=== PATIENT | female | born 1970 | race Caucasian/White ===

== ENCOUNTER → 2022-08-12 13:15 | Outpatient (CLI) | payer OTHER, BC, SELFPAY ==
--- NOTE | ~2022-08-12 | MM_ITS ---
EXAMINATION: MM screening [facility] BI w jay HISTORY: Screening mammogram TECHNIQUE: Craniocaudal and mediolateral oblique 3-D tomosynthesis images were obtained and synthetic 2-D images were generated. CAD analysis was submitted and interpreted. COMPARISON: 04/29/2016, 01/23/2014 BREAST PARENCHYMAL COMPOSITION: There are scattered areas of fibroglandular density. FINDINGS: No suspicious mass, calcification, or architectural distortion are identified in either ary ast to suggest malignancy. There has been no suspicious interval change. IMPRESSION: 1. No mammographic evidence of malignancy. 2. Recommend routine screening mammography in one year. BI-RADS Category 1: Negative Reviewed, dictated and finalized at location A.
== END ==
PROVIDERS: PCP Clinical Nurse Specialist; Visit Provider Clinical Nurse Specialist
DX: Z12.31 Encounter for screening mammogram for malignant neoplasm of breast (principal)
CPT/HCPCS: 77063; 77067

== ENCOUNTER → 2022-10-29 10:53 | Outpatient (CLI) | payer OTHER, BC, SELFPAY ==
--- NOTE | ~2022-10-29 | DEXA_ITS ---
Bone Density Report Name: JANAY LOPEZ Age: 52 Sex: Female Ethnicity: White Date of : 1970 Indication: postmenopausal; screening for osteoporosis; height loss; Referring Provider: Vanesa Hameed Study: Bone densitometry was performed. Exam Date: October 29, 2022 Accession number: [id number] Bone Density: Region BMD T-score Z-score Classification AP Spine (L1-L4) 0.892 -1.4 -0.4 Osteopenia Femoral Neck (Left) 0.681 -1.5 -0.5 Osteopenia Total Hip (Left) 0.853 -0.7 -0.1 Normal Femoral Neck (Right) 0.681 -1.5 -0.5 Osteopenia Total Hip (Right) 0.820 -1.0 -0.4 Normal Total Hip Mean 0.837 -0.9 -0.3 Normal World Health Organization criteria for BMD impression classify patients as: Normal (T-score at or above -1.0), Osteopenia (T-score between -1.0 and -2.5), or Osteoporosis (T-score at or below -2.5). 10-year Fracture Risk(1): Major Osteoporotic Fracture 6.1% Hip Fracture 0.5% Reported Risk Factors: [place] (), Neck BMD=0.681, BMI=29.9 (1) FRAX(R) Version 3.08. Fracture probability calculated for an untreated patient. Fracture probability may be lower if the patient has received treatment. Clinical Information Provided by Patient: Has used the following medications: Vitamin D, MTV Patient maximum height was 71 Menopause Age: 49 Does not regularly consume dairy products Drinks caffeinated beverages Onset of menses at age 12 Number of children 6 Impression: The patient has low bone mass, based on the Left Femoral Neck T-score. The patient has an estimated ten-year risk of hip fracture of 0.5% and an estimated ten-year risk of major fracture of 6.1%, based on the WHO FRAX algorithm. Discussion: BONE DENSITY IS LOW AT ONE OR MORE SKELETAL SITES. This patient's lowest T-score is low at one or more skeletal sites. It meets the World Health Organization's (WHO) criteria for ?low bone mass? (T-score between -1.0 and -2.5). The patient's 10-year risk of fracture as calculated by FRAX is less than the threshold where pharmacological therapy is recommended by the National Osteoporosis Foundation (NOF). However, all treatment decisions require clinical judgment and consideration of individual patient factors, including patient preferences, comorbidities, previous drug use, risk factors not captured in the FRAX model (e.g., frailty, falls, vitamin D deficiency, increased bone turnover, interval significant decline in bone density) and possible under or overestimation of fracture risk by FRAX. The patient should follow a healthful lifestyle (good nutrition with adequate calcium and vitamin D, and appropriate weight-bearing exercise). Follow-Up: Consider repeating this study in 2 to 3 years to reassess this patient's status, or sooner if there is some new clinical indication. Reported by: LOLIS
== END ==
PROVIDERS: PCP Clinical Nurse Specialist; Visit Provider Clinical Nurse Specialist
DX: Z78.0 Asymptomatic menopausal state (principal); M85.89 Other specified disorders of bone density and structure, multiple sites
CPT/HCPCS: 77080

== ENCOUNTER 2023-03-22 00:33 | Day surgery (SDC) | payer OTHER, BC, SELFPAY ==
[2023-03-07 09:30] VITALS: BMI 27.2
--- NOTE | 2023-03-18 10:28 | SUR.PREOP ---
Patient called regarding upcoming procedure. Reviewed preop instructions, appointment times, and procedure prep.
[2023-03-22 06:29] VITALS: BMI 29.2
[2023-03-22 06:32] VITALS: BP 133/81; PULSE 75; RESP 20; TEMP 37; O2SAT 99
[2023-03-22] MEDS: LACTATED RINGERS 1,000 ML 150 ML IV CONT (06:38)
--- NOTE | 2023-03-22 07:04 | WPDANESEPPF ---
Anes - Initial Pre Proc Eval Procedure: Operation Date: 03/22/23 07:30 Proposed Procedures p Screening Colonoscopy - Joseph Gay MD Date/Time: 03/22/23 07:04 Surgeon: Joseph Gay MD Pre Op Diagnosis: neoplasm screening Patient Data Age: 52 Gender: F Height: 1.8 m Weight: 95 kg Last Vital Signs Temp 37.0 C 03/22/23 06:32 Pulse 75 03/22/23 06:32 Resp 20 03/22/23 06:32 BP 133/81 03/22/23 06:32 Pulse Ox 99 03/22/23 06:32 O2 Del Method Room Air 03/22/23 06:32 Allergies Allergy/AdvReac Type Severity Reaction Status Date / Time merbromin Allergy Rash Verified 03/22/23 06:28 [From Mercurochrome] Home Medications Medication Instructions Recorded Confirmed Type diphenhydramine HCl 25 mg capsule 25 mg PO QHS PRN Insomnia 08/03/22 03/07/23 History (Benadryl) vitamin B complex-folic acid 0.4 1 tablet PO DAILY 08/03/22 03/07/23 History mg tablet (Super B Maxi Complex) calcium carbonate 500 mg calcium 500 mg PO DAILY 12/09/22 03/07/23 History (1,250 mg) chewable tablet (Calcium 500) omega-3 900 mg-dha 360 mg-epa 455 1 cap PO DAILY 12/09/22 03/07/23 History mg-fish oil 1,000 mg capsule (Fish Oil) multivit with minerals-iron 18 1 tablet PO DAILY 03/07/23 03/07/23 History mg-folic ac 400 mcg-vit K 25 mcg tablet (Adults Multivitamin) Patient hx anesthesia problems: none Family hx anesthesia problems: none Results Review: All pre-operative results and documents have been reviewed as part of the pre-operative evaluation. [facility] Past Medical History Medical History Cervical pain Cervical radicular pain Surgical History Surgical History History of appendectomy Family History Family History Father Family history of gout Social History Social History Smoking packs per day: 0.5 Smoking cigarettes per day: 10.0 Years smoked: 10 Smoking pack-years: 5.00 Smoking status: Former smoker Tobacco type: cigarettes Smoking end date: 04/04/07 Alcohol intake: current Drinks per week: 2 Alcohol use details: occasional Substance use: never Substance use type: does not use Lack of Transportation: No Lack of Food: Never True Current Housing: I Have Housing Concerned About Future Housing: No Difficulty Paying Gas/Electric Bills: No Difficulty Paying for Meds: No Currently Unemployed: No Education: High School Diploma/GED Difficulty w/ Childcare or Family Care: No Living arrangements: with family Spiritual care concerns: No Anes - Eval Final PreProcedure Day of Procedure 03/22/23 07:04 Patient weight: overweight Heart: regular rate and rhythm Lungs: clear to auscultation Airway: Mallampati scale class II Neurological: alert and oriented Last oral intake: >/= 8 hours ASA classification: II Emergent: no Anesthetic plan: proceed Anesthesia type and monitoring: general GIVS and standard monitoring Results Review: All pre-operative results and documents have been reviewed as part of the pre-operative evaluation. Informed Consent: The patient's anesthetic plan and its attendant risks and benefits were discussed with the patient/family/POA. Questions were solicited and answers provided to the satisfaction of the patient/family/POA.
--- NOTE | 2023-03-22 07:22 | PM.HPGS ---
History of Present Illness History of Present Illness Consent: Risks, benefits, and alternatives have been discussed and questions answered. Patient agrees to proceed with procedure. Chief complaint: neoplasm screening Narrative: Mally Guerrero is a 52 year old female here for first screening colonoscopy Review of Systems Constitutional: Constitutional: Denies headache(s) and Denies weakness Eyes: Eyes: Denies blurry vision ENT: Reports Normal hearing present, Denies headache(s) and Denies neck pain Cardiovascular: Cardiovascular: Denies chest pain and Denies dyspnea Respiratory: Respiratory: Denies dyspnea Gastrointestinal: Gastrointestinal: Reports no additional gastrointestinal complaints Genitourinary: Genitourinary: Denies dysuria Musculoskeletal: Musculoskeletal: Denies neck pain Integumentary/Breasts: Skin/Breast: Denies dry skin Neurologic: Reports Normal hearing present, Denies headache(s) and Denies weakness Psychiatric: Psychiatric: Denies anxiety Endocrine: Endocrine: Denies change in body appearance Hematologic/Lymphatic: Hematologic/Lymphatic: Denies easy bleeding Allergic/Immunologic: Allergic/Immunologic: Denies urticaria PMFSH Past Medical History Medical History Cervical pain Cervical radicular pain Surgical History Surgical History History of appendectomy Family History Family History Father Family history of gout Social History Social History Smoking packs per day: 0.5 Smoking cigarettes per day: 10.0 Years smoked: 10 Smoking pack-years: 5.00 Smoking status: Former smoker Tobacco type: cigarettes Smoking end date: 04/04/07 Alcohol intake: current Drinks per week: 2 Alcohol use details: occasional Substance use: never Substance use type: does not use Lack of Transportation: No Lack of Food: Never True Current Housing: I Have Housing Concerned About Future Housing: No Difficulty Paying Gas/Electric Bills: No Difficulty Paying for Meds: No Currently Unemployed: No Education: High School Diploma/GED Difficulty w/ Childcare or Family Care: No Living arrangements: with family Spiritual care concerns: No Meds Home Medications and Allergies Home Medications Medication Instructions Recorded Confirmed Type diphenhydramine HCl 25 mg capsule 25 mg PO QHS PRN Insomnia 08/03/22 03/07/23 History (Benadryl) vitamin B complex-folic acid 0.4 1 tablet PO DAILY 08/03/22 03/07/23 History mg tablet (Super B Maxi Complex) calcium carbonate 500 mg calcium 500 mg PO DAILY 12/09/22 03/07/23 History (1,250 mg) chewable tablet (Calcium 500) omega-3 900 mg-dha 360 mg-epa 455 1 cap PO DAILY 12/09/22 03/07/23 History mg-fish oil 1,000 mg capsule (Fish Oil) multivit with minerals-iron 18 1 tablet PO DAILY 03/07/23 03/07/23 History mg-folic ac 400 mcg-vit K 25 mcg tablet (Adults Multivitamin) Allergies Allergy/AdvReac Type Severity Reaction Status Date / Time merbromin Allergy Rash [facility]/22[facility]23 06[facility]28 [facility] Vital Signs Vital Signs - 24 hr 03/22/23 06:32 Temperature 98.6 F Pulse Rate 75 Respiratory Rate 20 Blood Pressure 133/81 Pulse Oximetry 99 Oxygen Delivery Room Air Exam Const: General: comfortable and no acute distress HENMT: Face/Nose/Sinus: Normal nares present Eyes: General: appearance normal, both eyes and all related structures Neck: Neck: no JVD Resp: Auscultation: clear to auscultation bilaterally Cardio: Rate: regular rate Rhythm: regular rhythm GI: Inspection: non-distended GI Palp: Yes Soft to palpation Skin: General skin exam: normal color Neuro: General: gait normal Speech: normal speech Extrem: General: normal to
[2023-03-22 07:45] VITALS: BP 116/71; PULSE 72; RESP 16; O2SAT 100
[2023-03-22 07:55] VITALS: BP 110/69; PULSE 75; RESP 17; O2SAT 100
[2023-03-22 08:04] VITALS: BP 118/82; PULSE 65; RESP 18; O2SAT 100
== END 2023-03-22 08:09 | disposition home or self-care (01) ==
PROVIDERS: PCP Emergency Medicine; Visit Provider Internal Medicine Gastroenterology
PROC: 0DJD8ZZ Inspection of Lower Intestinal Tract, Via Natural or Artificial Opening Endoscopic (ICD-10-PCS; CPT 45378; principal; 2023-03-22 07:30)
DX: Z12.11 Encounter for screening for malignant neoplasm of colon (principal); K64.8 Other hemorrhoids; K64.4 Residual hemorrhoidal skin tags; Z87.891 Personal history of nicotine dependence
CPT/HCPCS: 45378; J2704; J7120

== ENCOUNTER 2024-01-19 08:43 | Outpatient (CLI) | payer BC, SELFPAY ==
--- NOTE | ~2024-01-19 | MM_ITS ---
EXAMINATION: MM screening [facility] BI w jay HISTORY: Screening TECHNIQUE: Craniocaudal and mediolateral oblique 3-D tomosynthesis images were obtained and synthetic 2-D images were generated. CAD analysis was submitted and interpreted. COMPARISON: Comparison to multiple prior studies sequentially, with oldest reviewed study dated 01/03. BREAST PARENCHYMAL COMPOSITION: Not dense: There are scattered areas of fibroglandular density. FINDINGS: There is no evidence of suspicious mass, calcification, or architectural distortion to sugg est malignancy in either breast. There has been no suspicious interval change. IMPRESSION: 1. No mammographic evidence of malignancy. 2. Recommend routine screening mammography in one year. BI-RADS Category 1: Negative Reviewed, dictated and finalized at location B.
== END 2024-01-19 08:44 | disposition home or self-care (01) ==
PROVIDERS: PCP Family Medicine; Visit Provider Family Medicine
DX: Z12.31 Encounter for screening mammogram for malignant neoplasm of breast (principal)
CPT/HCPCS: 77063; 77067

== ENCOUNTER 2024-05-08 13:35 | Outpatient (RCR) | payer BC, SELFPAY ==
--- NOTE | 2024-05-08 15:05 | OPREHPOC ---
Outpatient Therapy Plan of Care This is a Multidisciplinary Plan of Care that may contain components documented by all disciplines (PT, OT, and ST.) PT Problem 1 PT Problem #1 Knowledge Deficit PT Goal 1 Goal / Goal Update 1. independent with HEP and sleeping position. Target Visit 2 PT Problem 2 PT Problem #2 Impaired Functional Mobility PT Goal 1 Goal / Goal Update 1. no nystagmus with L raymond hallpike 2. no vertigo in the last week 3. return to normal sleeping position Target Visit 4
--- NOTE | 2024-05-08 15:06 | PTOPEVAL1 ---
Assessment and note entered by JT File, PT Evaluation Information Assessment Status Evaluation Diagnosis vestibular therapy ICD-10 Condition Codes (PT) Dizziness and Giddiness R42,BPPV H81.12 Onset 02/03/24 Subjective Information patient reports she has been dealing with vertigo since february. she was treated for allergies initially. she reports no meds helped and she continued to have vertigo throughout this time. she reports it is improved since february and march. she reports she saw and ENT and he believes it is BPPV. she reports she has the most symptoms when laying in bed. she reports rolling onto her L side will cause the room to spin. she reports the symptoms come on quickly and then go away. she reports she is not on meclizine. initially had some ringing in the ears, but now she does not. Reported Pain Level Pain Score 0: Self Report Assessment PT Clinical Summary mrs. aguilar is a 53 yo woman who presents to skilled PT services for evaluation and treatment of vertigo. she presents today with a positive raymond hallpike test to the L side indicating a BPPV of the L ear. she would benefit from continued skilled PT to address her objective/functional deficits and return to prior level functional activity performance/quality of life. Plan of Care Interventions Neuro Re-education,Patient/Caregiver Education, Therapeutic Activities,Therapeutic Exercise,Other Other Interventions CR PT Services Indicated Yes Treatment Frequency and 2x weekly for 4 visits Duration These treatments will address the objective and functional deficits as defined above. The patient will be advanced safely and appropriately in order for the patient to progress towards his/her prior level of function. Additional exercises will be introduced and as well as a comprehensive home exercise program upon discharge, if needed, ?to ensure carryover of functional gains achieved in the clinic. This treatment plan has been reviewed and agreement upon by the patient.
--- NOTE | 2024-05-15 16:11 | OPREHPOC ---
Outpatient Therapy Plan of Care This is a Multidisciplinary Plan of Care that may contain components documented by all disciplines (PT, OT, and ST.) PT Problem 1 PT Problem #1 Knowledge Deficit PT Goal 1 Goal / Goal Update 1. independent with HEP and sleeping position. Target Visit 2 Progress Met PT Problem 2 PT Problem #2 Impaired Functional Mobility PT Goal 1 Goal / Goal Update 1. no nystagmus with L raymond hallpike 2. no vertigo in the last week 3. return to normal sleeping position Target Visit 4 Progress Met
--- NOTE | 2024-05-15 16:11 | PTOPDC ---
Assessment and note entered by JT File, PT Evaluation Information Assessment Status Discharge Diagnosis vestibular therapy ICD-10 Condition Codes (PT) Dizziness and Giddiness R42,BPPV H81.12 Onset 02/03/24 Subjective Information patient reports she feels great. she reports she no longer has any vertigo symptoms. she feels things are back to normal. Reported Pain Level Pain Score 0: Self Report Assessment PT Clinical Summary mrs. aguilar presents to skilled PT for her 3rd skilled PT visit for vertigo/BPPV. she no longer has any symptoms. she has met all goals, and is ready to DC skilled PT at this time. Plan of Care PT Services Indicated Yes
== END 2024-05-15 16:36 | disposition home or self-care (01) ==
LOC: CHSPT 13:35
PROVIDERS: Visit Provider Otolaryngology
DX: H81.12 Benign paroxysmal vertigo, left ear (principal)
CPT/HCPCS: 95992; 97110; 97161

== ENCOUNTER 2025-02-19 09:52 | Outpatient (CLI) | payer BC, SELFPAY ==
--- NOTE | ~2025-02-19 | MM_ITS ---
EXAMINATION: MM screening [facility] BI w jay HISTORY: Screening TECHNIQUE: Craniocaudal and mediolateral oblique 3-D tomosynthesis images were obtained and synthetic 2-D images were generated. CAD analysis was submitted and interpreted. COMPARISON: Comparison to multiple prior studies sequentially, with oldest reviewed study dated 04/29/2016. BREAST PARENCHYMAL COMPOSITION: Not dense: There are scattered areas of fibroglandular density. FINDINGS: There is no evidence of suspicious mass, calcification, or architectural distortion to suggest malignancy in either breast. There has been no suspicious interval change. IMPRESSION: 1. No mammographic evidence of malignancy. 2. Recommend routine screening mammography in one year. BI-RADS Category 1: Negative Reviewed, dictated and finalized at location O. [employer]
== END 2025-02-19 09:53 | disposition home or self-care (01) ==
LOC: MICIMG 09:54
PROVIDERS: PCP Family Medicine; Visit Provider Family Medicine
DX: Z12.31 Encounter for screening mammogram for malignant neoplasm of breast (principal)
CPT/HCPCS: 77063; 77067